=== PATIENT | female | born 1935 | race Caucasian/White ===

== ENCOUNTER 2017-09-11 02:00 | Emergency (ER) | END 2017-09-11 02:48 | disposition home or self-care (01) ==

== ENCOUNTER 2018-08-09 22:29 | Emergency (ER) | payer MEDICARE, OTHER ==
[~2018-08-09] VITALS: Ht 149.9 cm; Wt 72.0 kg
[~2018-08-09 22:29] MED LIST: ASPI-817 PO; ATEN-51 PO; AZAT50TA31 PO; BACTDS PO; CLON-379 PO; LEVO50TA7 PO
[2018-08-09] MEDS ORDERED: SOD CHLORIDE 0.9% 500 ML IV STA (22:33)
[2018-08-09 22:43] VITALS: Ht 149.9 cm; Wt 72.0 kg
--- NOTE | 2018-08-10 01:00 | ERD ---
ER Documentation Chief Complaint Chief Complaint BIBA for palpitations x 4 hours no relief with home meds HPI This is an 83-year-old female comes in again with the palpitation for hours with no relief at home meds. History of A. fib. No nausea no vomiting fevers no chills no chest pain. Patient said he took medication prior to arrival. ROS All systems reviewed and are negative except as per history of present illness. Medications Home Meds Reported Medications Clonidine Hcl* (Clonidine Hcl*) 0.1 Mg Tab, 0.1 MG PO BID, TAB 09/01/14 Levothyroxine Sodium* (Levothyroxine Sodium*) 50 Mcg Tablet, 50 MCG PO AC BREAKFAST, TAB 09/01/14 Sulfamethoxazole-Trimethoprim* (Bactrim* DS) 800-160 Mg Tab, 1 TAB PO BID, TAB 09/01/14 Aspirin* (Aspirin* EC) 81 Mg Tablet.dr, 81 MG PO DAILY, TAB 06/07/14 Azathioprine* (Imuran*) 50 Mg Tab, 50 MG PO DAILY, TAB 05/02/14 Atenolol* (Atenolol*) 25 Mg Tablet, 25 MG PO BID, TAB 05/02/14 Allergies Allergies: Coded Allergies: No Known Allergy (Unverified , 06/07/14) PMhx/Soc History of Surgery: Yes (Cholecystectomy,Bile Duct Stent Placement) Anesthesia Reaction: No Hx Neurological Disorder: Yes (Vertigo,Hematoma) Hx Respiratory Disorders: No Hx Cardiac Disorders: Yes (A-Fib,HTN) Hx Psychiatric Problems: No Hx Miscellaneous Medical Probl: Yes (Fall,Hyponatremia,Pancreatitis,Gallstones) Hx Alcohol Use: No Hx Substance Use: No Hx Tobacco Use: No Smoking Status: Never smoker Physical Exam Vitals Vital Signs Date Temp Pulse Resp B/P (MAP) Pulse Ox O2 O2 Flow FiO2 Time Delivery Rate 08/09/18 98.3 72 16 121/79 100 22:43 (93) Physical Exam Const: No acute distress Head: Atraumatic Eyes: Normal Conjunctiva ENT: Normal External Ears, Nose and Mouth. Neck: Full range of motion. No meningismus. Resp: Clear to auscultation bilaterally Cardio: Regular rate and rhythm, no murmurs Abd: Soft, non tender, non distended. Normal bowel sounds Skin: No petechiae or rashes Back: No midline or flank tenderness Ext: No cyanosis, or edema Neur: Awake and alert Psych: Normal Mood and Affect Result Diagram: 08/09/183 08/09/183 Results 24 hrs Laboratory Tests Test 08/09/18 23:13 White Blood Count 10.7 10^3/ul Red Blood Count 5.12 10^6/ul Hemoglobin 13.9 g/dl Hematocrit 43.0 % Mean Corpuscular Volume 84.0 fl Mean Corpuscular Hemoglobin 27.1 pg Mean Corpuscular Hemoglobin Concent 32.3 g/dl Red Cell Distribution Width 13.7 % Platelet Count 178 10^3/UL Mean Platelet Volume 12.5 fl Immature Granulocytes % 0.400 % Neutrophils % 70.7 % Lymphocytes % 17.1 % Monocytes % 9.1 % Eosinophils % 2.1 % Basophils % 0.6 % Nucleated Red Blood Cells % 0.0 /100WBC Immature Granulocytes # 0.040 10^3/ul Neutrophils # 7.6 10^3/ul Lymphocytes # 1.8 10^3/ul Monocytes # 1.0 10^3/ul Eosinophils # 0.2 10^3/ul Basophils # 0.1 10^3/ul Nucleated Red Blood Cells # 0.0 10^3/ul Sodium Level 136 mmol/L Potassium Level 4.8 mmol/L Chloride Level 96 mmol/L Carbon Dioxide Level 25 mmol/L Anion Gap 15 Blood Urea Nitrogen 14 mg/dl Creatinine 0.61 mg/dl Est Glomerular Filtrat Rate mL/min mL/min Glucose Level 111 mg/dl Calcium Level 10.0 mg/dl Total Bilirubin 0.3 mg/dl Direct Bilirubin 0.00 mg/dl Indirect Bilirubin 0.3 mg/dl Aspartate Amino Transf (AST/SGOT) 52 IU/L Alanine Aminotransferase (ALT/SGPT) 20 IU/L Alkaline Phosphatase 71 IU/L Troponin I < 0.012 ng/ml B-Type Natriuretic Peptide 495 PG/ML Total Protein 8.9 g/dl Albumin 4.7 g/dl Globulin 4.20 g/dl Albumin/Globulin Ratio 1.11 Current Medications Medications Dose Sig/Toro Start Time Status Last (Trade) Ordered Route PRN Stop Time Admin Dose Reason Admin Sodium 500 ml @ Q1H STAT 08/09/18 DC Chloride 500 mls/hr IV 22:33 08/09/18 23:32 Procedures/MDM EKG: Rate/Rhythm: Irregularly irregular, normal rate QRS, ST, T-waves: [No changes consistent w/ acute ischemia] Impression: Rate controlled A. fib Chest X-ray 1V Interpreted by me: Soft Tissue: No acute abnormalities Bones: No acute abnormalities Mediastinum/Cardiac Silhouette/Lungs: [No acute abnormalities] Medical decision making: Patient's thoracic symptoms have stabilized while in the department and are stable for outpatient follow up. Exam and work up not consistent w/ ischemia, arrhythmia, PE or dissection. Patient has history of known A. fib. She is now rate controlled. She is stable for outpatient management. Departure Diagnosis: Primary Impression: Palpitations Condition: Stable Patient Instructions: Palpitations CRYSTAL CROCKER Aug 10, 2018 01:00
[2018-08-10 01:20] VITALS: BP 116/60; PULSE 53; RESP 18
== END 2018-08-10 01:25 | disposition home or self-care (01) ==
LOC: E/R 22:29
DX: R00.2 Palpitations (principal); I10 Essential (primary) hypertension; Z79.82 Long term (current) use of aspirin
CPT/HCPCS: 36415; 71045; 80053; 83880; 84484; 85025; 93005; 99285; J7040